=== PATIENT | female | born 1975 | race Two or more races ===

== ENCOUNTER 2020-12-03 20:19 | Emergency (ER) | payer OTHER ==
[~2020-12-03] VITALS: Ht 160 cm; Wt 55.8 kg
== END 2020-12-03 23:13 | disposition home or self-care (01) ==
LOC: ER 20:19
DX: S01.02XA Laceration with foreign body of scalp, initial encounter (principal); W18.09XA Striking against other object with subsequent fall, initial encounter; Y93.89 Activity, other specified; Y92.098 Other place in other non-institutional residence as the place of occurrence of the external cause; Y99.8 Other external cause status

== ENCOUNTER 2020-12-09 15:36 | Emergency (ER) | payer OTHER ==
[~2020-12-09] VITALS: Ht 157.5 cm; Wt 55.8 kg
== END 2020-12-09 17:55 | disposition home or self-care (01) ==
LOC: ER 15:36
DX: Z48.02 Encounter for removal of sutures (principal)

== ENCOUNTER 2021-07-24 11:21 | Outpatient (CLI) | payer OTHER | END 2021-07-24 12:21 | disposition home or self-care (01) | LOC: ASH CLINIC 11:21 | PROVIDERS: ATTEND Emergency Medicine | DX: U07.1 COVID-19 (principal); Z23 Encounter for immunization ==

== ENCOUNTER 2021-08-28 08:29 | Outpatient (CLI) | payer OTHER | END 2021-08-28 08:35 | disposition home or self-care (01) | LOC: RAD 08:29 | PROVIDERS: ATTEND Internal Medicine Pulmonary Disease | DX: R05.8 Other specified cough (principal); J30.89 Other allergic rhinitis; I10 Essential (primary) hypertension ==